=== PATIENT | female | born 1995 | race Two or more races ===

== ENCOUNTER 2018-07-25 19:50 | Emergency (ER) | payer SELFPAY ==
--- NOTE | 2018-07-25 20:40 | EDM.PDOC ---
ED HPI GENERAL MEDICAL PROBLEM - General Chief Complaint: General Stated Complaint: POST SURGERY PAIN LEFT UNDER ARM Time Seen by Provider: 07/25/18 20:40 Source of Information: Reports: Patient - History of Present Illness INITIAL COMMENTS - FREE TEXT/NARRATIVE: HISTORY AND PHYSICAL: History of present illness: [Patient presents postop July 12 for left axilla surgery were cyst were removed, apparently she had follow-up with Dr. Duc Moore scheduled for August 04 as he is out of the office however patient is having increased pain and warmth from the site there is some scant exudate along the incision line that is closed at current 2 KASSANDRA or drains remain in place since July 12 area is mildly reddened and tender no fluctuance or induration is noted cannot express any exudate from the lesion for culture however culture will be obtained of the scant exudates along the suture line I did remediate remove 22 attila, air is Prolene sutures that remain in place along with the 2 KASSANDRA drains nO fever nausea vomiting chills sweats Review of systems: As per history of present illness and below otherwise all systems reviewed and negative. Past medical history: As per history of present illness and as reviewed below otherwise noncontributory. Surgical history: As per history of present illness and as reviewed below otherwise noncontributory. Social history: No reported history of drug or alcohol abuse. Family history: As per history of present illness and as reviewed below otherwise noncontributory. Physical exam: HEENT: Atraumatic, normocephalic, pupils reactive, negative for conjunctival pallor or scleral icterus, mucous membranes moist, throat clear, neck supple, nontender, trachea midline. Lungs: Clear to auscultation, breath sounds equal bilaterally, chest nontender. Heart: S1S2, regular, negative for clicks, rubs, or JVD. Abdomen: Soft, nondistended, nontender. Negative for masses or hepatosplenomegaly. Negative for costovertebral tenderness. Pelvis: Stable nontender. Genitourinary: Deferred. Rectal: Deferred. Extremities: Atraumatic, negative for cords or calf pain. Neurovascular unremarkable. Neuro: Awake, alert, oriented. Cranial nerves II through XII unremarkable. Cerebellum unremarkable. Motor and sensory unremarkable throughout. Exam nonfocal. Skin as per history of present illness Diagnostics: [1 culture ] Therapeutics: [Bactrim double strength by mouth twice a day #20 no refill Fowler 22 attila removed Choline sutures remain in place KASSANDRA drains remain in place Patient did have follow-up with Dr. Duc Moore on August 04 however feel patient needs to be followed closer than this and surgical clinic referral is provided for tomorrow or the next day ] Impression: [] postop July 12 from [place] , left axilla cyst removal Cellulitis AP drains in place Definitive disposition and diagnosis as appropriate pending reevaluation and review of above. Left Upper Arm Pain Score (Numeric/FACES): 10 - Related Data Allergies Allergy/AdvReac Type Severity Reaction Status Date / Time No Known Allergies Allergy Verified 07/25/18 20:20 Home Meds: Home Meds . 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: Psychiatric History: Reports: Anxiety - Past Surgical History GI Surgical History: Reports: Appendectomy Female Surgical History: Reports: Section, Cystectomy, Tubal Ligation Social & Family History - Tobacco Use Smoking Status *Q: Current Every Day Smoker Years of Tobacco use: 2 Packs/Tins Daily: 0.1 - Recreational Drug Use Recreational Drug Use: No ED ROS GENERAL - Review of Systems Review Of Systems: See Below ED EXAM, GENERAL - Physical Exam Exam: See Below Course - Vital Signs Last Recorded V/S: Last Vital Signs Temp 97.5 F 07/25/18 20:17 Pulse 79 07/25/18 20:17 Resp 18 07/25/18 20:17 BP 136/85 07/25/18 20:17 Pulse Ox 98 07/25/18 20:17 - Orders/Labs/Meds Orders: Active Orders 24 hr Category Date Time Status CULTURE WOUND [RM] Stat Lab 07/25/18 20:53 Ordered Departure - Departure Time of Disposition: 20:57 Disposition: Home, Self-Care 01 Condition: Good Clinical Impression: Cellulitis - Discharge Information Referrals: PCP,None [Primary Care Provider] - Forms: ED Department Discharge Additional Instructions: ER referral for general surgery follow-up with them next 24-48 hours Medication as prescribed Return if symptoms persist or worsen [facility] - General Surgery Professional Building [address] [place] [address], [address] [place] [address] The following information is given to patients seen in the emergency department who are being discharged to home. This information is to outline your options for follow-up care. We provide all patients seen in our emergency department with a follow-up referral. The need for follow-up, as well as the timing and circumstances, are variable depending upon the specifics of your emergency department visit. If you don't have a primary care physician on staff, we will provide you with a referral. We always advise you to contact your personal physician following an emergency department visit to inform them of the circumstance of the visit and for follow-up with them and/or the need for any referrals to a consulting specialist. The emergency department will also refer you to a specialist when appropriate. This referral assures that you have the opportunity for follow-up care with a specialist. All of these measure are taken in an effort to provide you with optimal care, which includes your follow-up. Under all circumstances we always encourage you to contact your private physician who remains a resource for coordinating your care. When calling for follow-up care, please make the office aware that this follow-up is from your recent emergency room visit. If for any reason you are refused follow-up, please contact the [facility] emergency department at and asked to speak to the emergency department charge nurse. - My Orders Last 24 Hours: My Active Orders 07/25/18 20:53 CULTURE WOUND [RM] Stat - Assessment/Plan Last 24 Hours: My Active Orders 07/25/18 20:53 CULTURE WOUND [RM] Stat
== END 2018-07-25 21:13 | disposition home or self-care (01) ==
LOC: MW.ED 19:50
DX: L03.112 Cellulitis of left axilla (principal); F17.210 Nicotine dependence, cigarettes, uncomplicated
CPT/HCPCS: 87070; 99283

== ENCOUNTER 2018-08-02 13:47 | Emergency (ER) | payer SELFPAY ==
--- NOTE | 2018-08-02 14:17 | EDM.PDOC ---
ED HPI GENERAL MEDICAL PROBLEM - General Chief Complaint: General Stated Complaint: MARGARET REMOVED Time Seen by Provider: 08/02/18 14:15 Source of Information: Reports: Patient History Limitations: Reports: No Limitations - History of Present Illness INITIAL COMMENTS - FREE TEXT/NARRATIVE: HISTORY AND PHYSICAL: History of present illness: Patient is a 22-year-old female who presents to the emergency room with complaints of postoperative complications. She states she had cysts removed from the left axilla on 07/12/2018 in [place] She reports that she has not been able to follow-up with them as she recently moved here to [facility]. She did attempt to get in at the clinic with the general surgeon but did not have identification with her that was needed. She has stitches running along the anterior to posterior axilla which have been in for 20+ days. She has 2 drains to the mid axillary line, left mid chest wall which have foul purulent drainage in the tubing. She denies any fever, chills, chest pain, shortness of breath or cough. Denies any abdominal pain, nausea, vomiting, diarrhea, constipation or dysuria. She has been eating and drinking appropriately. Tetanus is up-to-date. Review of systems: As per history of present illness and below otherwise all systems reviewed and negative. Past medical history: As per history of present illness and as reviewed below otherwise noncontributory. Surgical history: As per history of present illness and as reviewed below otherwise noncontributory. Social history: See social history for further information Family history: As per history of present illness and as reviewed below otherwise noncontributory. Physical exam: General: Well-developed and well-nourished 22-year-old female. Alert and oriented. Nontoxic appearing and in no acute distress. HEENT: Atraumatic, normocephalic, pupils equal and reactive bilaterally, negative for conjunctival pallor or scleral icterus, mucous membranes moist, TMs normal bilaterally, throat clear, neck supple, nontender, trachea midline. No drooling or trismus noted. No meningeal signs. No hot potato voice noted. Lungs: Clear to auscultation, breath sounds equal bilaterally, chest nontender. Heart: S1S2, regular rate and rhythm without overt murmur Abdomen: Soft, nondistended, nontender. Negative for masses or hepatosplenomegaly. Negative for costovertebral tenderness. Pelvis: Stable nontender. Genitourinary: Deferred. Rectal: Deferred. Skin: Incision noted from anterior to posterior axilla with sutures intact. Does appear to have a yeast like matter in the surrounding area. She has two KASSANDRA drainage tubes to the mid chest wall at midaxillary line, sutured in place. Otherwise skin is intact, warm, dry. No lesions or rashes noted. Extremities: Atraumatic, moves all per self, negative for cords or calf pain. Neurovascular unremarkable. Neuro: Awake, alert, oriented. Cranial nerves II through XII unremarkable. Cerebellum unremarkable. Motor and sensory unremarkable throughout. Exam nonfocal. Notes: Dr Virk was consulted on this patient, she has seen this patient in the ER. Sutures and KASSANDRA drains removed without any difficulty. Supportive care measures were reviewed and discussed by Dr. Virk. She will see this patient in her office in the next 7-10 days. Patient placed on Keflex and given Diflucan. Patient voices understanding and is agreeable to plan of care. Denies any further questions or concerns at this time. Diagnostics: None Therapeutics: Removal of stitches and KASSANDRA drains, wound care Prescription: Keflex TID x 7 days Diflucan x 3 days Impression: Encounter for removal of sutures and drain Candidiasis Plan: 1. Wash gently twice daily. Keep the area clean and dry. May apply topical yeast creams/powder as directed. Take your oral antibiotic as directed Tylenol and/or ibuprofen as needed for pain management. Continue to monitor for signs of improvement 2. Follow-up appointment with Dr Virk in 7-10 days. Located in the [facility]. 3. Return to the ED as needed and as discussed. Definitive disposition and diagnosis as appropriate pending reevaluation and review of above. 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: Psychiatric History: Reports: Anxiety Dermatologic History: Reports: Other (See Below) Other Dermatologic History: bilateral axillary cyst removal - Past Surgical History GI Surgical History: Reports: Appendectomy Female Surgical History: Reports: Section, Cystectomy, Tubal Ligation Social & Family History - Family History Family Medical History: Noncontributory - Tobacco Use Smoking Status *Q: Light Tobacco Smoker Years of Tobacco use: 5 Packs/Tins Daily: 0.1 - Recreational Drug Use Recreational Drug Use: No ED ROS GENERAL - Review of Systems Review Of Systems: ROS reveals no pertinent complaints other than HPI. ED EXAM, GENERAL - Physical Exam Exam: See Below (See dictation) Course - Vital Signs Last Recorded V/S: Last Vital Signs Temp 97.5 F 08/02/18 13:53 Pulse 84 08/02/18 13:53 Resp 18 08/02/18 13:53 BP 152/68 H 08/02/18 13:53 Pulse Ox 97 08/02/18 13:53 Departure - Departure Time of Disposition: 15:35 Disposition: Home, Self-Care 01 Clinical Impression: Candidiasis, Encounter for change or removal of drains, Encounter for removal of sutures - Discharge Information Prescriptions: cephALEXin [Keflex] 500 mg PO TID 7 Days #21 cap Fluconazole [Diflucan] 150 mg PO DAILY 3 Days #3 tablet Instructions: Wound Care, Adult, Incision Care, Adult, [id number], Skin Yeast Infection Referrals: PCP,None [Primary Care Provider] - Forms: ED Department Discharge Additional Instructions: The following information is given to patients seen in the emergency department who are being discharged to home. This information is to outline your options for follow-up care. We provide all patients seen in our emergency department with a follow-up referral. The need for follow-up, as well as the timing and circumstances, are variable depending upon the specifics of your emergency department visit. If you don't have a primary care physician on staff, we will provide you with a referral. We always advise you to contact your personal physician following an emergency department visit to inform them of the circumstance of the visit and for follow-up with them and/or the need for any referrals to a consulting specialist. The emergency department will also refer you to a specialist when appropriate. This referral assures that you have the opportunity for follow-up care with a specialist. All of these measure are taken in an effort to provide you with optimal care, which includes your follow-up. Under all circumstances we always encourage you to contact your private physician who remains a resource for coordinating your care. When calling for follow-up care, please make the office aware that this follow-up is from your recent emergency room visit. If for any reason you are refused follow-up, please contact the [facility] Emergency Department at and asked to speak to the emergency department charge nurse. [facility] [address], [place] [address] [address] [facility] - Plastic Surgery Professional Building [address] [place] [address], [address] [place] [address] 1. Wash gently twice daily. Keep the area clean and dry. May apply topical yeast creams/powder as directed. Take your oral antibiotic as directed Tylenol and/or ibuprofen as needed for pain management. Continue to monitor for signs of improvement 2. Follow-up appointment with Dr Virk in 7-10 days. Located in the [facility] building. 3. Return to the ED as needed and as discussed.
== END 2018-08-02 16:08 | disposition home or self-care (01) ==
LOC: MW.ED 13:47
DX: L76.82 Other postprocedural complications of skin and subcutaneous tissue (principal); B37.2 Candidiasis of skin and nail; Z90.49 Acquired absence of other specified parts of digestive tract; Z98.51 Tubal ligation status
CPT/HCPCS: 99283